=== PATIENT | female | born 1985 | race Asian ===

== ENCOUNTER 2022-08-26 19:09 | Emergency (ER) | payer OTHER ==
[~2022-08-26] VITALS: Ht 170.2 cm; Wt 99.8 kg
== END 2022-08-26 20:08 | disposition home or self-care (01) ==
LOC: ED 19:09
DX: K08.89 Other specified disorders of teeth and supporting structures (principal)
CPT/HCPCS: 99282

== ENCOUNTER 2022-11-01 16:03 | Emergency (ER) | payer OTHER ==
[~2022-11-01] VITALS: Ht 175.3 cm; Wt 99.8 kg
[2022-11-01 17:10] VITALS: BP 155/92; TEMP 97.9
== END 2022-11-01 17:10 | disposition home or self-care (01) ==
LOC: ED 16:03
DX: K02.9 Dental caries, unspecified (principal)
CPT/HCPCS: 99282